=== PATIENT | male | born 1935 | race Caucasian/White ===

== ENCOUNTER 2024-03-25 13:40 | Emergency (ER) | payer MEDICARE ==
[~2024-03-25] VITALS: Ht 185.4 cm; Wt 83.5 kg
[2024-03-25 16:09] LABS: APPEARANCE,URINE CLEAR (CLEAR); BILIRUBIN,URINE NEGATIVE (NEGATIVE); BLOOD, URINE NEGATIVE Ery/uL (NEGATIVE); COLOR,URINE YELLOW (YELLOW); KETONES,URINE NEGATIVE (NEGATIVE); LEUKOCYTE ESTERASE ,URINE NEGATIVE (NEGATIVE); NITRITE, URINE NEGATIVE (NEGATIVE); PH,URINE 5.5 (5.0-8.0); PROTEIN,URINE NEGATIVE (NEGATIVE); UGLUCOSE NEGATIVE (NEGATIVE); UROBILINOGEN,URINE 0.2 EU/dL (0.2)
[2024-03-25 16:23] VITALS: BP 121/68; TEMP 98.5; O2SAT 97
== END 2024-03-25 16:23 | disposition home or self-care (01) ==
LOC: ER 13:45
DX: S51.812A Laceration without foreign body of left forearm, initial encounter (principal); S51.802A Unspecified open wound of left forearm, initial encounter; I10 Essential (primary) hypertension; W18.30XA Fall on same level, unspecified, initial encounter; Y93.89 Activity, other specified; Y92.89 Other specified places as the place of occurrence of the external cause; Y99.8 Other external cause status
CPT/HCPCS: 99283; 81003; A6403

== ENCOUNTER 2024-03-29 15:32 | Emergency (ER) | payer MEDICARE ==
[~2024-03-29] VITALS: Ht 185.4 cm; Wt 83.5 kg
[2024-03-29 18:11] VITALS: BP 141/83; TEMP 98.5; O2SAT 99
== END 2024-03-29 18:11 | disposition home or self-care (01) ==
LOC: ER 15:44
DX: S09.90XA Unspecified injury of head, initial encounter (principal); G20.A1 Parkinson's disease without dyskinesia, without mention of fluctuations; I10 Essential (primary) hypertension; W19.XXXA Unspecified fall, initial encounter; Y93.89 Activity, other specified; Y92.89 Other specified places as the place of occurrence of the external cause; Y99.8 Other external cause status
CPT/HCPCS: 70450-TC; 70486-TC; 72125-TC

== ENCOUNTER 2024-04-05 14:24 | Emergency (ER) | payer MEDICARE ==
[~2024-04-05] VITALS: Ht 172.7 cm; Wt 82.6 kg
[2024-04-05 17:11] VITALS: BP 190/72; TEMP 97.8; O2SAT 99
== END 2024-04-05 17:14 | disposition home or self-care (01) ==
LOC: ER 14:39
DX: M79.18 Myalgia, other site (principal); R10.2 Pelvic and perineal pain; G20.A1 Parkinson's disease without dyskinesia, without mention of fluctuations; I10 Essential (primary) hypertension
CPT/HCPCS: 70450-TC